=== PATIENT | female | born 1985 | race Hispanic/Latino ===

== ENCOUNTER 2017-08-28 20:43 | Emergency (ER) | payer SELFPAY ==
[~2017-08-28] VITALS: Ht 154.9 cm; Wt 129.2 kg
[~2017-08-28 20:43] MED LIST: NAPROSYN500 MG PO
[2017-08-28] MEDS ORDERED: SILVADENE1 % EX (21:27)
[2017-08-28] MEDS ORDERED: CEPHALEXIN500 M1 PO (21:27)
[2017-08-28 21:33] VITALS: BP 140/92
== END 2017-08-28 21:33 | disposition home or self-care (01) | DRG 935 ==
LOC: ED 20:43
PROC: 2W23X4Z Dressing of Abdominal Wall using Bandage (ICD-10-PCS; principal; 2017-08-28)
DX: T21.22XA Burn of second degree of abdominal wall, initial encounter (principal); X12.XXXA Contact with other hot fluids, initial encounter; Y93.89 Activity, other specified; Y92.000 Kitchen of unspecified non-institutional (private) residence as the place of occurrence of the external cause

== ENCOUNTER 2018-07-20 10:33 | Emergency (ER) | payer SELFPAY ==
[~2018-07-20] VITALS: Ht 154.9 cm; Wt 127.0 kg
[~2018-07-20 10:33] MED LIST changes: +CEPHALEXIN500 M1 PO; +SILVADENE1 % EX
[2018-07-20] MEDS ORDERED: NAPROSYN500 MG PO (11:54)
[2018-07-20 12:00] VITALS: BP 155/84
== END 2018-07-20 12:00 | disposition home or self-care (01) | DRG 563 ==
LOC: ED 10:33
DX: S93.402A Sprain of unspecified ligament of left ankle, initial encounter (principal); W01.0XXA Fall on same level from slipping, tripping and stumbling without subsequent striking against object, initial encounter; Y93.01 Activity, walking, marching and hiking; Y92.009 Unspecified place in unspecified non-institutional (private) residence as the place of occurrence of the external cause